=== PATIENT | male | born 2000 | race Caucasian/White ===

== ENCOUNTER 2023-03-26 19:33 | Emergency (ER) | payer OTHER, BC ==
[~2023-03-26] VITALS: Ht 182.9 cm; Wt 104.0 kg
[2023-03-26 22:04] VITALS: BP 109/77
== END 2023-03-26 22:05 | disposition home or self-care (01) ==
LOC: ED 19:33
DX: S92.412A Displaced fracture of proximal phalanx of left great toe, initial encounter for closed fracture (principal); V87.8XXA Person injured in other specified noncollision transport accidents involving motor vehicle (traffic), initial encounter
CPT/HCPCS: 73660

== ENCOUNTER 2024-09-15 10:10 | Emergency (ER) | payer OTHER ==
[~2024-09-15] VITALS: Ht 182.9 cm; Wt 109.0 kg
[~2024-09-15 10:10] MED LIST: AMOX TR-K CLV1 EAC1 PO
--- OUTSIDE RECORDS SUMMARY | 2024-09-15 10:19 | XMS ---
PreManage Notification: [employer] Super[employer] Events No recent Security Events currently on file CRITERIA MET - [facility] - 2 Visits in 30 Days CARE PROVIDERS There are no care providers on record at this time. Silva has no Care Guidelines for this patient. [facility] (12 MO.) [facility] NOTE: Visits indicate total known visits. ED/C VISIT TRACKING (12 MO.) [facility] [place] [facility] COMPLAINT: - LT ARM LACERATION 09/14/2024 13:09 [facility] [place] TYPE: Emergency COMPLAINT: - LACERATION INPATIENT VISIT TRACKING (12 MO.) No inpatient visits to display in this time frame [email or web address]
[2024-09-15 11:17] VITALS: BP 118/89
== END 2024-09-15 11:19 | disposition home or self-care (01) ==
LOC: ED 10:10
DX: S51.032A Puncture wound without foreign body of left elbow, initial encounter (principal); X58.XXXA Exposure to other specified factors, initial encounter
CPT/HCPCS: 99283